=== PATIENT | female | born 1975 | race Caucasian/White ===

== ENCOUNTER → 2024-10-18 | Day surgery (SDC) | payer OTHER ==
[~2024-10-18] MED LIST: Ketamine 200 MG/20 ML MDV ONE; Propofol 200 MG/20 ML SDV ONE; fentaNYL 50 MCG/ML SDV ONE
[2024-10-18] MEDS: Lactated Ringers 1,000 ML IV SCH (11:39)
== END ==
LOC: CC.SDS 11:13
PROVIDERS: ATTEND Family Medicine
DX: Z12.11 Encounter for screening for malignant neoplasm of colon (principal); D12.3 Benign neoplasm of transverse colon; K64.9 Unspecified hemorrhoids; Z88.0 Allergy status to penicillin; Z80.0 Family history of malignant neoplasm of digestive organs
CPT/HCPCS: 00811; 81025; J2704; J3010; J3490; J7120